=== PATIENT | male | born 1985 | race Caucasian/White ===

== ENCOUNTER 2020-05-20 16:25 | Emergency (ER) | payer OTHER ==
[~2020-05-20] VITALS: Ht 175.3 cm; Wt 80.6 kg
[2020-05-20] MEDS ORDERED: PRIL20TA2 PO (16:50)
[2020-05-20] MEDS ORDERED: AUGM875T28 PO (17:10)
[2020-05-20] MEDS ORDERED: AUGMENTIN 875 MG TAB PO ONE (17:10)
[2020-05-20] MEDS ORDERED: IBUP-1022 PO (17:10)
[2020-05-20 17:27] VITALS: BP 138/96
== END 2020-05-20 17:24 | disposition home or self-care (01) ==
LOC: M ED 16:25
DX: L02.411 Cutaneous abscess of right axilla (principal); J45.909 Unspecified asthma, uncomplicated; Z79.899 Other long term (current) drug therapy